=== PATIENT | female | born 1995 | race African-American/Black ===

== ENCOUNTER 2024-07-05 19:38 | Inpatient (IN) | payer BC ==
[2024-07-05] MEDS ORDERED: METOCLOPRAMIDE HCL INJECTION 10 MG/2 ML VIAL ONE (20:32)
[2024-07-05] MEDS: LACTATED RINGERS SOLUTION 1000 ML INFUS.BAG IV ONE (21:00)
[2024-07-05] MEDS: METOCLOPRAMIDE HCL INJECTION 10 MG/2 ML VIAL IVPB ONE (21:00)
[2024-07-05 21:25] LABS: BASO % 0.9 % (0-2.0); EOS % 1.4 % (0-4.5); HEMOGLOBIN 11.4 GM/dL (10.7-15.3); LYMPH % 24.8 % (8-40); MCH 23.1 pg (25.7-33.7); MEAN CELL VOLUME 74.6 fl (80-96); MEAN PLT VOLUME 9.5 fl (7.5-11.1); MONO % 5.3 % (3.8-10.2); NEUT % 67.6 % (42.8-82.8); PLATELET COUNT 222 10^3/uL (134-434); RBC 4.95 M/mm3 (3.60-5.2); RDW 13.4 % (11.6-15.6)
[2024-07-05 21:27] LABS: PH,URINE 5.5 (5.0-8.0); URINE APPEARANCE Error; URINE BILIRUBIN NEGATIVE (NEGATIVE); URINE COLOR YELLOW; URINE GLUCOSE (UA) NEGATIVE (NEGATIVE); URINE KETONE 4+ (NEGATIVE); URINE LEUK ESTERASE NEGATIVE (NEGATIVE); URINE NITRITE NEGATIVE (NEGATIVE); URINE PROTEIN TRACE (NEGATIVE); URINE UROBILINOGEN 0.2 mg/dL (0.2-1.0)
[2024-07-05 21:52] LABS: POTASSIUM 3.9 mmol/L (3.5-5.1)
[2024-07-05 21:54] LABS: ALBUMIN 3.8 g/dl (3.4-5.0); BLOOD UREA NITROGEN 15.6 mg/dL (7-18); CALCIUM 9.7 mg/dL (8.5-10.1)
[2024-07-05 21:58] LABS: CREATININE 0.8 mg/dL (0.55-1.3)
[2024-07-05 21:59] LABS: BILIRUBIN,TOTAL 0.8 mg/dL (0.2-1); TOT PROT 7.1 g/dl (6.4-8.2)
[2024-07-05 22:34] LABS: HIV INTERPRETATION NEGATIVE (NEGATIVE)
[2024-07-06] MEDS: DEXTROSE 5% IVPB SCH (00:05)
[2024-07-06] MEDS: NORMAL SALINE IVPB SCH (00:05)
[2024-07-06] MEDS: THIAMINE HCL IVPB SCH (00:05)
[2024-07-06] MEDS ORDERED: THIAMINE HCL 200 MG/2 ML VIAL ONE (00:18)
[2024-07-06] MEDS ORDERED: ONDANSETRON 4 MG/2 ML VIAL ONE (00:19)
[2024-07-06] MEDS: ONDANSETRON 4 MG/2 ML VIAL IVPUSH ONE (00:37)
[2024-07-06] MEDS: THIAMINE HCL 200 MG/2 ML VIAL IVPB ONE (00:37)
[2024-07-06] MEDS: PROMETHAZINE HCL 25 MG/1 ML VIAL IVPB SCH (02:48)
[2024-07-06] MEDS ORDERED: METOCLOPRAMIDE HCL INJECTION 10 MG/2 ML VIAL IVPUSH PRN (03:18)
[2024-07-06] MEDS ORDERED: PROMETHAZINE HCL 25 MG/1 ML VIAL IVPB PRN (03:18)
[2024-07-06 03:30] VITALS: RESP 18; BMI 28.3
[2024-07-06] MEDS: PYRIDOXINE HCL (B-6) 50 MG TABLET (FP) PO SCH ×2 (03:46→09:26)
[2024-07-06] MEDS ORDERED: PROMETHAZINE HCL 25 MG/1 ML VIAL IVPB SCH (07:00)
[2024-07-06] MEDS ORDERED: DEXTROSE 5%-NORMAL SALINE 1,000 ML IV SCH (07:30)
[2024-07-06 08:48] LABS: HEMOGLOBIN 10.6 GM/dL (10.7-15.3); MCH 23.2 pg (25.7-33.7); MCHC 31.1 g/dl (32.0-36.0); MEAN CELL VOLUME 74.5 fl (80-96); MEAN PLT VOLUME 9.7 fl (7.5-11.1); PLATELET COUNT 203 10^3/uL (134-434); RBC 4.56 M/mm3 (3.60-5.2); RDW 13.4 % (11.6-15.6); WHITE BLOOD COUNT 6.1 K/mm3 (4.0-10.0)
[2024-07-06 09:05] LABS: CALCIUM 9.2 mg/dL (8.5-10.1)
[2024-07-06 09:06] LABS: ALBUMIN 3.4 g/dl (3.4-5.0); BLOOD UREA NITROGEN 16.9 mg/dL (7-18)
[2024-07-06 09:09] LABS: CREATININE 0.8 mg/dL (0.55-1.3)
[2024-07-06 09:10] LABS: BILIRUBIN,TOTAL 0.8 mg/dL (0.2-1); TOT PROT 6.5 g/dl (6.4-8.2)
[2024-07-06] MEDS: METOCLOPRAMIDE HCL INJECTION 10 MG/2 ML VIAL IVPUSH PRN (15:37)
[2024-07-06] MEDS: LACTATED RINGERS SOLUTION 1,000 ML/1,000 ML INFUS.BAG IV SCH (16:49)
[2024-07-07] MEDS ORDERED: METOCLOPRAMIDE HCL INJECTION 10 MG/2 ML VIAL IVPUSH SCH (06:45)
[2024-07-07] MEDS: METOCLOPRAMIDE HCL INJECTION 10 MG/2 ML VIAL IVPUSH SCH ×2 (08:50→14:22)
[2024-07-07] MEDS ORDERED: METOCLOPRAMIDE HCL INJECTION 10 MG/2 ML VIAL IVPUSH PRN (09:06)
[2024-07-07 09:23] LABS: HEMATOCRIT 35.1 % (32.4-45.2); HEMOGLOBIN 10.9 GM/dL (10.7-15.3); MCH 23.2 pg (25.7-33.7); MEAN CELL VOLUME 74.9 fl (80-96); MEAN PLT VOLUME 9.7 fl (7.5-11.1); PLATELET COUNT 205 10^3/uL (134-434); RBC 4.69 M/mm3 (3.60-5.2); RDW 13.5 % (11.6-15.6); WHITE BLOOD COUNT 5.6 K/mm3 (4.0-10.0)
[2024-07-07 09:42] LABS: POTASSIUM 3.4 mmol/L (3.5-5.1)
[2024-07-07 10:06] LABS: CALCIUM 8.8 mg/dL (8.5-10.1)
[2024-07-07 10:07] LABS: BLOOD UREA NITROGEN 11.4 mg/dL (7-18)
[2024-07-07 10:10] LABS: CREATININE 0.9 mg/dL (0.55-1.3)
[2024-07-07 10:11] LABS: PHOSPHOROUS 3.3 mg/dL (2.5-4.9)
[2024-07-07] MEDS: LACTATED RINGERS SOLUTION 1,000 ML/1,000 ML INFUS.BAG IV SCH (15:18)
[2024-07-07] MEDS: POTASSIUM CHLORIDE ORAL LIQUID 20 MEQ/15 ML PO ONE (17:05)
[2024-07-08 04:24] VITALS: BP 98/66; PULSE 77; TEMP 98.6
[2024-07-08 08:57] LABS: POTASSIUM 3.9 mmol/L (3.5-5.1)
[2024-07-08 09:00] LABS: HEMATOCRIT 34.4 % (32.4-45.2); HEMOGLOBIN 10.9 GM/dL (10.7-15.3); MCH 23.2 pg (25.7-33.7); MCHC 31.8 g/dl (32.0-36.0); MEAN PLT VOLUME 9.8 fl (7.5-11.1); PLATELET COUNT 197 10^3/uL (134-434); RBC 4.71 M/mm3 (3.60-5.2); RDW 13.6 % (11.6-15.6); WHITE BLOOD COUNT 5.4 K/mm3 (4.0-10.0)
[2024-07-08 09:02] LABS: CALCIUM 9.3 mg/dL (8.5-10.1)
[2024-07-08 09:03] LABS: BLOOD UREA NITROGEN 10.8 mg/dL (7-18); MAGNESIUM 1.9 mg/dL (1.8-2.4)
[2024-07-08 09:06] LABS: CREATININE 0.8 mg/dL (0.55-1.3); PHOSPHOROUS 3.5 mg/dL (2.5-4.9)
[2024-07-08] MEDS: METOCLOPRAMIDE HCL 10 MG TABLET (FP) PO SCH (11:14)
== END 2024-07-08 15:16 | disposition home or self-care (01) | DRG 833 ==
LOC: JER 19:38 → JERBED 23:05 → J6S 07-06 03:12 → OBSVTOIN 07-06 14:08
PROVIDERS: ADMIT Student in an Organized Health Care Education/Training Program; ATTEND Internal Medicine
DX: O21.0 Mild hyperemesis gravidarum (principal); Z3A.08 8 weeks gestation of pregnancy
CPT/HCPCS: 36415; 80048; 80053; 81003; 83735; 84100; 84702; 85025; 85027; 86803; 86850; 86900; 86901; 87086; 87389; 93005; 93010; 99285-25; G0378

== ENCOUNTER 2024-09-28 15:56 | Emergency (ER) | payer BC ==
[2024-09-28 16:04] VITALS: BP 160/62; PULSE 80; RESP 18; TEMP 98.7; BMI 23.8
== END 2024-09-28 17:10 | disposition home or self-care (01) ==
LOC: JER 15:56
DX: O21.2 Late vomiting of pregnancy (principal); Z3A.21 21 weeks gestation of pregnancy
CPT/HCPCS: 99283-25